=== PATIENT | female | born 1960 | race Caucasian/White ===

== ENCOUNTER → 2016-10-31 | Outpatient (CLI) | payer BC ==
--- NOTE | ~2016-10-31 | MY29 ---
[facility] A Service of [facility] RADIOLOGY TEXT RESULTS PATIENT: PENNY CHEUNG LOCATION: [facility] : 64 UNIT #: [id number] AGE: [address]: Lizette Augustin MD SEX: F ORDER DR: [id number] [facility] [address] [place], [place] [address] [id number] MR#: [id number] #: [id number] NAME: PENNY CHEUNG. : 1960 SEX: F STUDY DATE/TIME: 10/31/2016 11:17 UNIT: [facility] ROOM: STUDY DESCRIPTION: MY KAYKAY SCREENING W/ CAD BILAT Attending Physician: Lizette Augustin M.D. Referring Physician: Lizette Augustin M.D. Ordering Physician: Lizette Augustin M.D. Primary Care Physician: Lizette Augustin M.D. MEDICAL IMAGING REPORT This report is preliminary unless electronic signature is present EXAM Digital screening mammogram, 10/31/2016, [facility]. HISTORY 56-year-old woman, no risk elevation. Previous ultrasound-guided right breast biopsy. Annual screen. COMPARISON Mammograms date to 08/08/2013 with most recent 08/10/2014. TECHNIQUE Digital imaging of each breast was completed utilizing screening protocol. Review includes FDA-approved CAD device. FINDINGS Breast parenchyma is predominantly fatty replaced bilaterally. Biopsy marker is stable right subareolar location. There is no breast mass. I see no suspicious microcalcifications and no architectural deformity. IMPRESSION Negative mammogram. Annual screening recommended. Patients over the age of 40 are entered into a reminder system with target due date for the next mammogram. A result letter will also be sent to the patient. BIRADS: 1 Negative Dictated by... Robbi Curran M.D. [facility] A Service [facility] RADIOLOGY TEXT RESULTS PATIENT: PENNY CHEUNG LOCATION: [facility] : 64 UNIT #: [id number] AGE: [address]: Lizette Augustin MD SEX: F ORDER DR: THIS IS AN ELECTRONICALLY VERIFIED REPORT Robbi Curran M.D. at 10/31/2016 1:00 PM HERB/brady TD: 10/31/2016 12:54 JOB #: [id number] MEDICAL IMAGING REPORT Page 1 of 1 COPY
== END | disposition home or self-care (01) ==
LOC: CWCC 10:51
DX: Z12.31 Encounter for screening mammogram for malignant neoplasm of breast (principal); Z98.890 Other specified postprocedural states
CPT/HCPCS: G0202